=== PATIENT | male | born 1990 | race Caucasian/White ===

== ENCOUNTER 2022-03-03 10:37 | Emergency (ER) | payer OTHER, SELFPAY ==
[2022-03-03 10:58] VITALS: BP 152/81; PULSE 93; RESP 16; TEMP 36.8; O2SAT 98
--- NOTE | 2022-03-03 12:01 | ED.EAR ---
HPI - Ear Problem General Chief complaint: Ear Stated complaint: ear pain Time Seen by Provider: 03/03/22 12:01 Source: patient, RN notes reviewed and old records reviewed Mode of arrival: ambulatory Limitations: no limitations History of Present Illness HPI Narrative: 31 year old male presents to [facility] care with complaints of feeling like fluid on the right ear, cant hear well from right ear for last 2 weeks. Was ill earlier in the week with fevers but that has resolved. continues to have some nasal congestion and drainage. Patient denies any cough or any shortness of breath. Patient reports that he has had ear infections in the past, has been taking Mucinex for his symptoms.Patient has been COVID vaccinated but has not had flu shot. MD Complaint: ear pain and decreased hearing (right ear) Location: right ear Discharge from ear: Reports no Treatment prior to arrival: other (Mucinex) Related Data Allergies Allergy/AdvReac Type Severity Reaction Status Date / Time No Known Allergies Allergy Verified 03/03/22 10:56 Review of Systems Review of Systems: CONSTITUTIONAL: Denies malaise, chills, sweats, or fever. EYES: Denies visual changes, redness, or discharge. ENT: Reports rhinorrhea, congestion, sinus pain,right otalgia no sore throat. CARDIOVASCULAR: Denies chest pain, palpitations, or edema. RESPIRATORY: No acute cough.? Denies dyspnea. GASTROINTESTINAL: Denies abdominal pain, nausea, vomiting, diarrhea SKIN: Denies rash or itching. MUSCULOSKELETAL: Denies myalgia. NEUROLOGIC: Denies headache. All systems reviewed & are unremarkable except as noted in HPI and below PMFSH Past Medical History Medical History (Updated 03/06/22 @ 10:39 by Kaylin Figueredo NP) Ear infection Surgical History Surgical History (Updated 03/06/22 @ 10:39 by Kaylin Figueredo NP) History of umbilical hernia repair Social History Social History (Updated 03/06/22 @ 10:39 by Kaylin Figueredo NP) Smoking status: Never smoker Alcohol intake: never Substance use: never Gender identity (if verbalized by the patient): Male Comments At time of signature, agree with nursing past medical, surgical, social and family history. There is no relevant family history pertinent to the presenting complaint Exam Narrative: GENERAL: Well-appearing, well-nourished, and in no acute distress. HEAD: Normocephalic EYES: PERRLA, conjunctivae clear ENT: Nares clear, turbinates edematous and erythematous, clear discharge. Mucous membranes moist. TM pearly walker with dull light reflex bilaterally, right ear noted to have some bulging of TM with no redness; no tragal tenderness. Oropharynx erythematous without lesions. Tonsils not enlarged and without exudate, no drooling, no hoarseness, no trismus, uvula midline.post nasal drainage noted. NECK: Supple. No lymphadenopathy CHEST: Clear to auscultation, breath sounds equal. No wheezing, rhonchi, rales, or stridor. No respiratory distress, speaks in full sentences.No cough noted SAO2 98% on room air HEART: Regular rate and rhythm. No murmur heard. SKIN: Warm, dry, no rash. NEURO: Alert and oriented x3. PSYCH: Normal mood and affect Course Course Emergency Course: Patient is aware of diagnosis, understands and agrees to treatment plan.? Anticipatory guidance given.? Patient agrees to follow-up as directed and is aware of reasons to seek care at the emergency department. Portions of this record may have been created with voice recognition software Level of Care: Express Care Visit Vital Signs Vital signs: Vital Signs Temperature 36.8 C 03/03/22 10:58 Pulse Rate 93 03/03/22 10:58 Respiratory Rate 16 03/03/22 10:58 Blood Pressure 152/81 H 03/03/22 10:58 Pulse Oximetry 98 03/03/22 10:58 Oxygen Delivery Room Air 03/03/22 10:58 Temperature 36.8 C 03/03/22 10:58 Pulse Rate 93 03/03/22 10:58 Respiratory Rate 16 03/03/22 10:58 Blood Pressure
== END 2022-03-03 12:21 | disposition home or self-care (01) ==
PROVIDERS: Emergency Provider Registered Nurse
DX: J06.9 Acute upper respiratory infection, unspecified (principal); H69.91 Unspecified Eustachian tube disorder, right ear
CPT/HCPCS: 99203; G0463